=== PATIENT | male | born 1985 | race Caucasian/White ===

== ENCOUNTER 2016-10-20 03:22 | Emergency (ER) | payer SELFPAY ==
[2016-10-20 03:28] VITALS: BP 136/80
== END 2016-10-20 04:45 | disposition left against medical advice (07) ==
LOC: ER 03:22
DX: Z53.21 Procedure and treatment not carried out due to patient leaving prior to being seen by health care provider (principal)
CPT/HCPCS: 87804

== ENCOUNTER 2019-01-20 03:47 | Emergency (ER) | payer SELFPAY ==
[2019-01-20] MEDS ORDERED: CEFTRIAXONE 1 GM/D5W RTU 1 GM/50 ML RTUPB IV ONE (04:17)
[2019-01-20] MEDS ORDERED: VANCOMYCIN HCL INJ 1000 MG VIAL IV ONE (04:17)
[2019-01-20] MEDS ORDERED: NORMAL SALINE 1000 ML 1,000 ML IV ONE (04:18)
[2019-01-20 05:11] LABS: ABSOLUTE EOSINOPHILS # (AUTO) 0.2 10^3/uL (0.0-0.6); ABSOLUTE LYMPHOCYTES (AUTO) 1.8 10^3/uL (0.5-4.7); ABSOLUTE MONOCYTES (AUTO) 1.1 10^3/uL (0.1-1.4); ABSOLUTE NEUT (AUTO) 9.6 10^3/uL (1.7-8.2); BASOPHILS % (AUTO) 0.4 % (0-2); EOSINOPHILS % (AUTO) 1.5 % (0-6); HEMATOCRIT 39.1 % (37.9-51.0); HEMOGLOBIN 13.4 g/dL (13.5-17.0); LYMPHOCYTES % (AUTO) 13.9 % (13-45); MEAN CORPUSCULAR HEMOGLOBIN 28.7 pg (27.0-33.4); MEAN CORPUSCULAR HGB CONC 34.2 g/dL (32.0-36.0); MEAN CORPUSCULAR VOLUME 84 fl (80-97); MONOCYTES % (AUTO) 8.7 % (3-13); PLATELET COUNT 293 10^3/uL (150-450); RED BLOOD COUNT 4.66 10^6/uL (4.35-5.55); RED CELL DISTRIBUTION WIDTH 14.1 % (11.5-14.0); SEGMENTED NEUTROPHILS % (AUTO) 75.5 % (42-78); TOTAL CELLS COUNTED % (AUTO) 100 %; WHITE BLOOD COUNT 12.7 10^3/uL (4.0-10.5)
[2019-01-20 05:41] LABS: ANION GAP 9 (5-19); BLOOD UREA NITROGEN 14 mg/dL (7-20); CALCIUM 9.4 mg/dL (8.4-10.2); CARBON DIOXIDE 32 mmol/L (22-30); CHLORIDE 98 mmol/L (98-107); GLUCOSE 129 mg/dL (75-110); POTASSIUM 4.4 mmol/L (3.6-5.0)
--- NOTE | 2019-01-20 05:44 | ER Document Report ---
ED General - General Chief Complaint: Insect Bite Stated Complaint: POSSIBLE BUG BITE Time Seen by Provider: 01/20/19 04:12 Notes: Patient is a pleasant 33-year-old male who presents with complaint of redness and swelling abnormal warmth to the left upper extremity. Redness and swelling go from just above the left elbow into the left hand. Patient says it started with a area of swelling and possible bug bite just below the left elbow. He says that he did try to cut and drain the area. He did get some pus out. At that time area had some redness and swelling but shortly after coming draining at the redness and swelling got much worse and therefore is come to the ER. No fevers. No vomiting. No history of IV drug abuse. Patient denies previous similar problem. Medical allergies includes penicillins. She is not diabetic. TRAVEL OUTSIDE OF THE [place] IN LAST 30 DAYS: No - Related Data Allergies/Adverse Reactions: Penicillins Allergy (Verified 01/20/19 03:55) Past Medical History - Social History Smoking Status: Current Every Day Smoker Frequency of alcohol use: None Drug Abuse: None Family History: Reviewed & Not Pertinent Neurological Medical History: Reports: Hx Seizures Renal/ Medical History: Denies: Hx Peritoneal Dialysis Psychiatric Medical History: Reports: Hx Attention Deficit Hyperactivity Disorder Past Surgical History: Reports: Hx Orthopedic Surgery - Immunizations Hx Diphtheria, Pertussis, Tetanus Vaccination: Yes Review of Systems - Review of Systems Notes: My Normal Review Basic REVIEW OF SYSTEMS: CONSTITUTIONAL : Denies fever, chills, or sweats. EENT: Denies eye, ear, throat, or mouth pain or symptoms. Denies nasal or sinus congestion. RESPIRATORY: Denies cough, cold, or chest congestion. Denies shortness of breath, difficulty breathing, or wheezing. GASTROINTESTINAL: Denies abdominal pain. Denies nausea, vomiting, or diarrhea. MUSCULOSKELETAL: Redness and swelling to left arm. SKIN: Denies rash or skin lesions. NEUROLOGICAL: Denies sensory or motor loss. ALL OTHER SYSTEMS REVIEWED AND NEGATIVE. Physical Exam - Vital signs Vitals: Temp Pulse Resp BP Pulse Ox 98 F 96 16 143/83 H 97 01/20/19 03:54 01/20/19 03:54 01/20/19 03:54 01/20/19 03:54 01/20/19 03:54 - Notes Notes: General Appearance: Well nourished, alert, cooperative, no acute distress, no obvious discomfort. Well-appearing. Vitals: reviewed, See vital signs table. Eyes: PERRL, EOMI, Conjuctiva clear Mouth: No decreasd moisture Lungs: No wheezing, No rales, No rhonci, No accessory muscle use, good air exchange bilaterally. Heart: Normal rate, Regular rythm, No murmur, no rub Abdomen: Normal BS, soft, No rigidity, No abdominal tenderness, No guarding, no rebound, no abdominal masses, no organomegaly Extremities: strength 5/5 in all extremities, good pulses in all extremities, this is swelling starting just above the left elbow and continuing down the arm. Is mostly along the dorsal aspect of the arm and into the dorsal aspect of the hand. No redness or swelling to the fingers. Patient is able to fully flex and extend fingers without difficulty. He does have an area just below the left elbow on the dorsal aspect of the forearm. Appears patient probably had a small abscess which he tried to squeeze and drain on its own. There is no residual fluctuance. No crepitance to palpation. Skin: warm, dry, appropriate color, no rash Neuro: speech clear, oriented x 3, normal affect, responds appropriately to questions. Course - Re-evaluation Re-evalutation: 01/20/19 06:26 Patient does have significant cellulitis of the left upper extremity. I did obtain a CT scan to make sure is no evidence of deeper abscess. CT scan was negative for abscess. Patient not to squeeze or push on the arm as this likely will cause worsening cellulitis. His redness and warmth has actually decreased significantly since he has been here in the ER. Did receive vancomycin and Rocephin here. I will place him on doxycycline. I did more the borders of the redness. I informed him that the redness may start to spread a little bit over the first 24 hours but then he should start to decrease significantly. I informed him that if the redness spreads more than a little bit, if he has fe vers, or if he has significant pain into his arm that he must return to ER immediately. Encouraged him to read return to the ER or follow-up with doctor in 2 days for reevaluation. Patient agrees with plan will be discharged home. Dictation of this chart was performed using voice recognition software; therefore, there may be some unintended grammatical errors. - Vital Signs Vital signs: Temp Pulse Resp BP Pulse Ox 98 F 96 16 143/83 H 97 01/20/19 03:54 01/20/19 03:54 01/20/19 03:54 01/20/19 03:54 01/20/19 03:54 - Laboratory Result Diagrams: 01/20/19 04:39 01/20/19 04:39 Laboratory results interpreted by me: 01/20/19 01/20/19 04:39 04:39 WBC 12.7 H Hgb 13.4 L RDW 14.1 H Absolute Neutrophils 9.6 H Carbon Dioxide 32 H Glucose 129 H Discharge - Discharge Clinical Impression: Cellulitis Qualifiers: Site of cellulitis: extremity Site of cellulitis of extremity: upper extremity Laterality: left Qualified Code(s): L03.114 - Cellulitis of left upper limb Condition: Good Disposition: HOME, SELF-CARE Additional Instructions: I prescribed an antibiotic called doxycycline. Doxycycline will make your skin more sensitive to the sun so please make sure you keep your skin covered or wear sunscreen whenever out in the sun. Please fill the prescription and start taking it today. Please do not squeeze or push on the infected area on your arm. Please follow-up with your doctor or the ER in 2 days for reevaluation. You may see slight increase in the redness in the first 24 hours but then the redness should start to decrease and your arm should improve. Please have a very low threshold to return to ER if you have a more than a small amount of increase of redness, increasing swelling of the arm, fevers, or if you feel that you are worsening in any way. Prescriptions: Doxycycline Hyclate 100 mg PO BID #14 capsule Forms: Return to Work
--- NOTE | 2019-01-20 05:53 | RADIOLOGY REPORT (SQ) ---
EXAM DESCRIPTION: CT UPPER EXTREMITY WITH IV CONTRAST COMPLETED DATE/TME: 01/20/2019 04:17 CLINICAL HISTORY: Pain. 33 years Male, LT arm infection COMPARISON: Same day. Technique: IV contrast. Coronal and sagittal reformat. This exam was performed according to our departmental dose-optimization program, which includes automated exposure control, adjustment of the mA and/or kV according to patient size and/or use of iterative reconstruction technique. [facility]: Dose Right [facility]: CareDose [facility]: Dose Right [facility]: Teradose 4D [facility]: [employer] LIMITATIONS: None Findings: Moderate posterior subcutaneous edema and effusion of the left forearm. No evidence of abscess or drainable fluid collection. Bones, joints, and soft tissues of the CT LEFT forearm WITH IV CONTRAST appear otherwise intact. IMPRESSION: Moderate, extensive subcutaneous swelling, edema, and/or cellulitis of the left forearm.
[2019-01-20 06:52] VITALS: BP 116/69
== END 2019-01-20 06:51 | disposition home or self-care (01) ==
LOC: ER 03:47
DX: L03.114 Cellulitis of left upper limb (principal); F17.200 Nicotine dependence, unspecified, uncomplicated; F90.9 Attention-deficit hyperactivity disorder, unspecified type; Z88.0 Allergy status to penicillin
CPT/HCPCS: 99283; 96365; 96366; 96368; 36415; 85025; 80048; 73201; J7030; J3370; J0696